=== PATIENT | male | born 1980 | race Hispanic/Latino ===

== ENCOUNTER 2018-08-29 10:00 | Emergency (ER) | payer OTHER ==
[2018-08-29] MEDS ORDERED: IBUPROFEN 600 MG TABLET ONE (10:19)
== END 2018-08-29 11:10 | disposition home or self-care (01) ==
LOC: EDH 10:00
DX: N43.3 Hydrocele, unspecified (principal); E11.9 Type 2 diabetes mellitus without complications; I10 Essential (primary) hypertension
CPT/HCPCS: 82948